=== PATIENT | male | born 1985 | race Caucasian/White ===

== ENCOUNTER 2020-03-21 00:07 | Emergency (ER) | payer OTHER ==
[~2020-03-21] VITALS: Ht 172.7 cm; Wt 129.7 kg
[2020-03-21 00:10] VITALS: BP 137/82
[2020-03-21] MEDS ORDERED: GENTAK5 ML TOP (00:47)
== END 2020-03-21 00:55 | disposition home or self-care (01) ==
LOC: M.ERS 00:07
DX: S05.01XA Injury of conjunctiva and corneal abrasion without foreign body, right eye, initial encounter (principal); G47.30 Sleep apnea, unspecified; X58.XXXA Exposure to other specified factors, initial encounter; Y93.89 Activity, other specified; Y92.89 Other specified places as the place of occurrence of the external cause; Y99.8 Other external cause status